=== PATIENT | male | born 1935 | race Caucasian/White ===

== ENCOUNTER 2021-02-12 06:34 | Observation (INO) ==
--- NOTE | 2021-01-09 15:15 | PAT Medication Instructions ---
Medication Instructions Date of Service January 09, 2021 Home Medications aspirin 81 mg tablet,delayed release 81 mg PO QAM atorvastatin 20 mg tablet 20 mg PO QPM finasteride 5 mg tablet 5 mg PO QPM meloxicam 15 mg tablet 15 mg PO QAM omega 9-klm-tli-fish oil 1,200 mg (144 mg-216 mg) capsule 1 cap PO QAM tamsulosin 0.4 mg capsule 0.4 mg PO QAM turmeric 400 mg capsule 1,000 mg PO QAM acetaminophen [Tylenol Extra Strength] 1,000 mg PO Q6H PRN ASK your surgeon for instructions meloxicam 15 mg tablet 15 mg PO QAM STOP taking 2 weeks before surgery (or as soon as possible if surgery is within 2 weeks) omega 0-zou-zrq-fish oil 1,200 mg (144 mg-216 mg) capsule 1 cap PO QAM turmeric 400 mg capsule 1,000 mg PO QAM Take morning of surgery With a small sip of water, OTHERWISE NOTHING TO EAT OR DRINK AFTER MIDNIGHT: aspirin 81 mg tablet,delayed release 81 mg PO QAM (continue as normal unless told otherwise by surgeon) tamsulosin 0.4 mg capsule 0.4 mg PO QAM acetaminophen [Tylenol Extra Strength] 1,000 mg PO Q6H PRN (okay to take up to 4 hours prior to surgery if needed) Take evening before surgery atorvastatin 20 mg tablet 20 mg PO QPM finasteride 5 mg tablet 5 mg PO QPM acetaminophen [Tylenol Extra Strength] 1,000 mg PO Q6H PRN (if needed) Other Notes If you have any questions please call us at [phone] or [phone] or [phone] or [phone]
--- NOTE | 2021-01-14 10:17 | Anesthesiology Consultation ---
Date of Service January 14, 2021 Assessment & Plan (1) Encounter for pre-operative examination: - COVID screening: Per assessment on 01/14: Travel screen- returned from travel to [place], [place] 01/04/21. Trip with extended family, stayed in rented condo. P atient vaccinated. Return from travel will be > 2 weeks prior to preop COVID testing. No known COVID-19 positive contacts or current COVID-19 related symptoms. Surgeon arranging preop COVID testing. Awaiting results. - Cardiology office visit (01/09/20): "Patient overall is doing well. Previous and recent test results and medical options were thoroughly reviewed. Risk factor modifications were discussed. Continue routine care and follow-up.. Bradycardia.. Asymptomatic." F/U 12/2021 per cardiology. Chart Review Chart Review: Acceptable Risk for Surgery and Patient seen in Pre Admission Testing Teaching & Discussion Pre-Anesthesia Teaching/Discussion Notes: Instructed NPO after midnight before surgery,except medications with 15 cc of water. Medication instructions provided according to the PAT guidelines. History Surgery Operation Date: 02/12/21 07:00 Proposed Procedures p Right Total Hip Arthroplasty - Too De La Cruz MD Height/Weight Height: 6 ft 4 in Weight: 93.6 kg Allergies Allergy/AdvReac Type Severity Reaction Status Date / Time No Known Allergies Allergy Verified 01/09/21 08:57 Medications Home Medications Medication Instructions Recorded Confirmed Last Taken aspirin 81 mg tablet,delayed 81 mg PO QAM 11/15/20 01/14/21 Unknown release atorvastatin 20 mg tablet 20 mg PO QPM 11/15/20 01/14/21 Unknown finasteride 5 mg tablet 5 mg PO QPM 11/15/20 01/14/21 Unknown meloxicam 15 mg tablet 15 mg PO QAM 11/15/20 01/14/21 Unknown omega 2-cno-bif-fish oil 1,200 mg 1 cap PO QAM 11/15/20 01/14/21 Unknown (144 mg-216 mg) capsule tamsulosin 0.4 mg capsule 0.4 mg PO QAM 11/15/20 01/14/21 Unknown turmeric 400 mg capsule 1,000 mg PO QAM 11/15/20 01/14/21 Unknown acetaminophen [Tylenol Extra 1,000 mg PO Q6H PRN 01/09/21 01/14/21 Unknown Strength] Past Medical History Medical History Arthritis of right hip CAD (coronary artery disease) GORAN x1 to dRCA (2016), follows with Dr. Ramos Enlarged prostate High cholesterol History of myocardial infarction NSTEMI (2016) > GORAN x1 to dRCA Exercise / Class Metabolic Activity II 4-5 Yardwork/Stairs/Walk up hill Past Family History Family History Other No known health problems Past Surgical History Surgical History H/O carpal tunnel repair R/L H/O hernia repair x2 H/O prostate biopsy History of cardiac cath stent x1 (2015)/[facility] History of colonoscopy Past Anesthesia History No Hx of Anesthesia Complications and No Family Hx of Anesthesia Complications History of PONV No Hx of PONV and No Hx of Motion Sickness Social History Smoking Status: Former smoker Do You Dip or Chew Tobacco: No (Quit ) Smoking End Date: Quit Hx Alcohol Use: Yes Alcohol type: beer and wine alcohol intake frequency: holidays/special occasions only Hx Substance Use: No Review of Systems No snoring. Patient denies chest pain, shortness of breath, dyspnea on exertion, fever, chills, cough, wheezing, palpitations. Physical Exam Vital Signs VITALS BP 100/61 > pt reports low-normal BP chronically P 52 > chronic bradycardia, asymptomatic TEMP 98.1 SP02 94%RA RESP 16 PHYSICAL Full cervical extension range of motion. Full TMJ range of motion. TMD 3.5 finger breaths Mallampati Score 3 Dentition: missing molars Lungs: clear throughout to auscultation Cardiac: regular rate and rhythm, distant heart sounds Spine: normal Carotid arteries: negative bruit Extremities: no edema Lab Results Anesthesia Preop Results Results Anesthesia Widget: WBC 5.84 K/uL (4.8-10.8) 01/14/21 Hgb 12.9 g/dL (14.0-18.0) L 01/14/21 Hct 39.4 % (42-52) L 01/14/21 Plt 207 K/uL (130-400) 01/14/21 Na 140 mmol/L (136-145) 01/14/21 K 4.5 mmol/L (3.5-5.1) 01/14/21 Cl 108 mmol/L (98-107) H 01/14/21 CO2 27 mmol/L (21-32) 01/14/21 BUN 20 mg/dl (7-18) H 01/14/21 Creat 0.88 mg/dl (0.6-1.4) 01/14/21 Glucose Level 95 mg/dl (70-99) 01/14/21 PT 10.6 Seconds (9.0-12.0) 01/14/21 PTT 27.3 Seconds (21.0-31.0) 01/14/21 INR 1.0 (0.9-1.1) 01/14/21 Blood Type A Positive 01/14/21 Antibody Screen NEGATIVE 01/14/21 Testing Electrocardiogram Date: 01/14/21 SB with first degree AVB at 53bpm. Otherwise normal ECG. Chest X-Ray Date: 01/14/21 Mild atelectasis or scarring at the left base. Echocardiogram Date: 12/20/19 LVEF 55 to 60%. Mild LAE. Mild ME. Mildly dilated ascending aorta. Estimated PASP is normal. Stress Test Date: 08/31/17 Type: exercise Stress ECG negative for ischemia. Fair exercise tolerance. METS 8.8. No exercise-induced chest pain. 97% MPHR. Cardiac Catheterization Date: 06/23/16 GORAN dumont to Renan
[~2021-02-12 06:34] MED LIST: ACETAMINOPHEN 500 MG TAB PO SCH; BUPIVACAINE 0.5 % 5 MG/1 ML PF 10ML VIAL ONE; FAMOTIDINE 20 MG TAB PO SCH; GABAPENTIN 300 MG CAP PO SCH; LR 500ML BOLUS, THEN 15ML/HR IV SCH; LR 60ML/HR IV SCH; METOCLOPRAMIDE HCL 10 MG TABLET PO SCH; TRANEXAMIC ACID 1,000 MG **IV Pre-op IV SCH; ceFAZolin 2000MG 2,000 MG/15 ML SYR IV SCH
--- NOTE | 2021-02-12 06:54 | History & Physical Bridge Note ---
Date of Service February 12, 2021 History & Physical Bridge Note I have examined the patient, reviewed the History & Physical and in the interval since the performance of the History & Physical I have noted the following changes of clinical significance: no changes noted
[2021-02-12] MEDS ORDERED: LIDOCAINE 2% 2 ML VIAL/AMP(20MG/ML) INFIL ONE (07:18)
[2021-02-12] MEDS ORDERED: PROPOFOL IV EMULSION 10 MG/ML 20 ML VIAL IV ONE (07:18)
[2021-02-12] MEDS ORDERED: fentaNYL citrate 100 MCG/2 ML VIAL ONE (07:19)
[2021-02-12] MEDS ORDERED: MIDAZOLAM HCL 1 MG/ML 2ML VIAL ONE (07:19)
[2021-02-12] MEDS ORDERED: EPINEPHrine INJ 1 MG/ML AMP ONE (07:20)
[2021-02-12] MEDS ORDERED: BUPIVACAINE 0.5 % 5 MG/1 ML MPF 30ML VIAL ONE (07:21)
[2021-02-12] MEDS ORDERED: MoRPHine SULFATE PF 1 MG/ML 10 ML AMP/VIAL ONE (07:24)
[2021-02-12] MEDS ORDERED: ePHEDrine sulfate 50 MG/ML AMP IV PRN (08:03)
[2021-02-12] MEDS ORDERED: ATROPINE SULFATE 0.1 MG/ML 10ML SYR IV PRN (08:03)
[2021-02-12] MEDS ORDERED: fentaNYL citrate 100 MCG/2 ML VIAL IV PRN (08:03)
[2021-02-12] MEDS ORDERED: ONDANSETRON INJ 2 MG/ML 2 ML VIAL IV PRN ×2 (08:03→15:33)
[2021-02-12] MEDS ORDERED: PHENYLEPHRINE HCL 10 MG/ML VIAL ONE (09:45)
[2021-02-12] MEDS ORDERED: ePHEDrine sulfate 50 MG/ML SYR ONE (09:45)
[2021-02-12] MEDS ORDERED: PHENYLEPHRINE 100MCG/ML 5ML SYR ONE (09:45)
--- NOTE | 2021-02-12 10:06 | Post Operative Brief Note ---
PG Immediate Post Op with CF Date of Surgery February 12, 2021 Pre & Post Diagnosis Operation Date: 02/12/21 08:50 Pre-Op Diagnosis: Right Hip Osteoarthritis Post-Op Diagnosis: Right Hip Osteoarthritis I identified the patient and participated in the time-out.: Yes Procedure Operation Date: 02/12/21 08:50 Actual Procedures p Right Total Hip Replacement(Right) - Too De La Cruz MD Surgeon Too De La Cruz MD Flight Engineer Manager YOSELIN Neff Estimated Blood Loss 200 Findings Consistent with Post-Op Diagnosis Fluids 1500 cc Specimens Specimen Description: A. Right Femoral Head Drains Thompson Catheter Anesthesia Type Spinal MAC Complications none
--- NOTE | 2021-02-12 10:23 | Operative Report ---
Post Operative Report Pre & Post Diagnosis Operation Date: 02/12/21 08:50 Pre-Op Diagnosis: Right Hip Osteoarthritis Post-Op Diagnosis: Right Hip Osteoarthritis I identified the patient and participated in the time-out.: Yes Procedure Operation Date: 02/12/21 08:50 Actual Procedures p Right Total Hip Replacement(Right) - Too De La Cruz MD Surgeon Too De La Cruz MD Dental Mechanic YOSELIN Neff Estimated Blood Loss 200 Findings Consistent with Post-Op Diagnosis Operative findings revealed advanced right hip DJD with extensive grade 4 luhs-uw-hbbv disease of the femoral head and acetabulum. Large hip joint effusion. He had flattening and erosive changes of the femoral head. Moderate- sized joint effusion. Some moderate synovitis. Fluids 1500 cc Specimens Right femoral head sent for pathology. Drains None Anesthesia Type Spinal MAC Complications none Disposition Accompanied Patient To Recovery: Yes Indications Patient is an 85 old very active gentleman has had a several year history of the right hip pain is gotten secondarily worse over the past 6 months. He exercises regularly but been less able to do this due to severe hip pain. X-ray showed advanced hip DJD. He failed conservative management elected proceed with surgical treatment. Description of Procedure Operative implants consisted of: 1. Biomet G7 size 58 mm acetabular shell. 2. Homer hole hand tire trimmer. 3. 6.5 cancellous acetabular screws 135 mm length by 30 mm length. 4. Highly cross-linked polyethylene liner with a 58 mm outer diameter, 40 mm inner diameter with a casillas placed inferior and posterior. 5. Storden Corail size 15 KLA femoral stem. 6. +8.5/40 mm ceramic articular ball. Patient was taken to the operating, identified, placed on the operating table supine position protectors were properly padded. IV antibiotics 5 by anesthesia team. A spinal anesthetic and been implemented holding area. Thompson catheter was placed in sterile fashion. The patient then placed in the left lateral decubitus position. An axillary roll was placed. A Stulberg hip positioner was used for positioning. The right hip and leg were then prepped and draped in usual sterile fashion. A posterior lateral approach of the right hip was then performed through a curvilinear incision centered over the greater trochanter. Sharp dissection was carried through subcutaneous tissue down to the IT band gluteal fascia the IT band gluteal fascia incised longitudinally in line with skin incision. The underlying greater bursa was excised. The piriformis and external rotators were tagged and taken off the posterior aspect of the femur. Great care was taken throughout the procedure protect the sciatic nerve at all times. Posterior capsulotomy was then performed leaving a large flap for later repair. Hip was internally rotated and dislocated. Femoral neck osteotomy cut was made with Final Cut 14 mm above the lesser trochanter. Femoral head was removed and sent for pathology. The femur was retracted anteriorly. Attention drawn the acetabulum. The acetabular labrum was excised. The pulmonary fat was excised. Sequential reaming the acetabular was then performed again with a size 47 and progressing up to 57. I did reamed a little bit with a 58 reamer and then placed a 58 mm cup. This is placed in about 40 lateral opening and 20 of anteversion. It was fixed with two 6.5 cancellous acetabular screws. Some fairly large anterior osteophytes were removed. Trial liner was placed. Attention drawn the femur. The proximal femur was entered with a cookie-cutter followed by canal finder. I then broached begin the size 8 and progressing up to a 15. Got excellent fit of 15. I then trialed the hip. The +5 articular ball seemed a bit lax. He had quite a bit of offset so I did place a +8.5 articular ball with a casillas placed inferior and posterior to maximize his stability. We also used a 40 mm head. The hip was fully stable in full extension and external rotation and flexion to 9 internal rotation to 50. I elect to place these implants. All trial implants were removed. An apex hole hand tire trimmer was placed but highly cross-linked polyethylene liner was placed with a casillas placed inferior and posterior. A a 15 KLA femoral stem was impacted in position. +8.5/40 mm ceramic articular ball was placed. Hip was located once again found to be stable. Attention drawn toward closing. Nupathe wounds irrigated scope soft pulsatile lavage solution. I did inject locally with 60 cc of half percent Marcaine with epinephrine. The posterior capsule and external rotators were then repaired through drill holes in the posterior trochanter with #2 Tycron suture. The IT band gluteal fascia then closed in 1 PDS suture running fashion subcutaneous tissue was then closed with 2-0 Dexon suture in a buried interrupted fashion the skin was closed with skin meena. Legs then cleaned dried a sterile dressing both Xeroform, 4 x 4's, sterile ABD pad and foam tape was applied. Patient then transferred to the recovery room in stable condition. Patient tolerated the procedure well and there were no complications. Iftikhar Neff, my physician library clerical assistant, was present for the entire procedure. His assistance was essential and required for appropriate patient positioning, prepping and draping, surgical exposure, performing the technical details of the operation, placement the implants, closure of the wound, and placement of the sterile bandage. I attest to the content of the Intraoperative Record and any orders documented therein. Any exceptions are noted below.
--- NOTE | 2021-02-12 10:36 | Anesthesiology Progress Note ---
Date of Service February 12, 2021 Anesthesia Post Procedure Vital Signs Vital Signs: Temp Pulse Pulse Resp BP Pulse Ox 02/12/21 10:25 97.0 F L 77 16 92/63 L 97 02/12/21 10:15 96 H 14 93/55 L 93 02/12/21 10:08 97.3 F L 88 14 111/60 98 02/12/21 07:38 97.9 F 62 18 107/90 97 02/12/21 07:01 98.2 F 66 20 154/76 H 98 Transfer of Care Handoff Completed per policy Notes Mental Status: alert / awake / arousable and participated in evaluation Patient Amnestic to Procedure: Yes Nausea / Vomiting: adequately controlled Pain: adequately controlled Airway Patency, RR, SpO2: stable & adequate BP & HR: stable & adequate Hydration State: stable & adequate Neuraxial Anesthesia: was administered and sensory block is resolving Anesthetic Complications: no major complications apparent and Pt Satisfied with anesthetic care
--- NOTE | 2021-02-12 13:16 | XRay Report ---
XR hip 1V RT w pelvis CLINICAL HISTORY: Postoperative evaluation. COMPARISON: Right hip radiographs January 14, 2021. FINDINGS: Alignment of the total right hip arthroplasty is anatomic. No periprosthetic fracture. The re is no unexpected radiopaque foreign body. There are skin meena. Left hip osteoarthritis is noted . IMPRESSION: Expected findings following total right hip arthroplasty. ACT 112: Negative or not required by law. Electronically signed by: Napoleon Guillen M.D. 02/12/2021 1:15 PM
[2021-02-12] MEDS ORDERED: METOCLOPRAMIDE HCL INJ 5 MG/ML 2 ML VIAL IV PRN (15:33)
[2021-02-12] MEDS ORDERED: traMADol HCL 50 MG TABLET PO PRN (15:33)
[2021-02-12] MEDS ORDERED: MAGNESIUM HYDROXIDE SUSP 30 ML UDC PO PRN (15:33)
[2021-02-12] MEDS ORDERED: bisacodyL 10 MG SUPP PR PRN (15:33)
[2021-02-12] MEDS ORDERED: HYDROmorphone INJ 0.5 MG/0.5 ML SYR IV PRN (15:33)
[2021-02-12] MEDS ORDERED: ALUMINUM/MAGNESIUM SUSP 30 ML UDC PO PRN (15:33)
[2021-02-12] MEDS ORDERED: NALOXONE HCL 0.4 MG/1 ML VIAL/CARP IV PRN (15:33)
[2021-02-12] MEDS ORDERED: TRANEXAMIC ACID / 0.7% NACL 1,000 MG/100 ML BAG IV SCH (16:15)
[2021-02-12] MEDS: SODIUM CHLORIDE 0.9% 1000ML 1,000 ML IV SCH (16:19)
[2021-02-12] MEDS: KETOROLAC TROMETHAMINE 15 MG/ML VIAL IV SCH ×2 (16:20→21:24)
[2021-02-12] MEDS: ACETAMINOPHEN 500 MG TAB PO SCH ×2 (16:20→21:23)
[2021-02-12] MEDS: ASCORBIC ACID 500 MG TAB PO SCH (17:39)
[2021-02-12] MEDS: ceFAZolin 2000MG 2,000 MG/15 ML SYR IV SCH (18:39)
[2021-02-12] MEDS ORDERED: FINASTERIDE 5 MG TAB PO SCH (21:00)
[2021-02-12] MEDS ORDERED: ATORVASTATIN 20 MG TAB PO SCH (21:00)
[2021-02-12] MEDS ORDERED: SENNA 8.6 MG TAB PO SCH (21:00)
[2021-02-12] MEDS: ASPIRIN 81 MG ECTAB PO SCH (21:22)
[2021-02-12] MEDS: DOCUSATE SODIUM 100 MG CAP PO SCH (21:23)
[2021-02-13] MEDS: SODIUM CHLORIDE 0.9% 1000ML 1,000 ML IV SCH (01:48)
[2021-02-13] MEDS: ceFAZolin 2000MG 2,000 MG/15 ML SYR IV SCH (01:48)
[2021-02-13] MEDS: KETOROLAC TROMETHAMINE 15 MG/ML VIAL IV SCH ×2 (03:55→08:37)
[2021-02-13 06:22] LABS: Eosinophils # (auto) 0.01 K/uL (0-0.5); Eosinophils % (auto) 0.1 %; Hematocrit (blood only) 29.7 % (42-52); Immature Granulocytes # (auto) 0.02 K/uL (0.00-0.02); Immature Granulocytes % (auto) 0.2 %; Lymphocytes # (auto) 0.53 K/uL (1.2-3.4); Lymphocytes % (auto) 5.1 %; Mean Corpuscular Hemoglobin 28.4 pg (25-34); Mean Corpuscular Hgb Conc 33.7 g/dL (32-36); Mean Corpuscular Volume 84.4 fL (80-100); Mean Platelet Volume 8.3 fL (7.4-10.4); Monocytes % (auto) 9.6 %; Neutrophils # (auto) 8.88 K/uL (1.4-6.5); Platelet Count 161 K/uL (130-400); RDW Coefficient of Variation 14.3 % (11.5-14.5); Red Blood Count 3.52 M/uL (4.7-6.1); White Blood Count 10.44 K/uL (4.8-10.8)
[2021-02-13] MEDS: ACETAMINOPHEN 500 MG TAB PO SCH ×2 (06:33→14:34)
[2021-02-13 06:52] LABS: Calcium 7.8 mg/dl (8.5-10.1); Creatinine Clr Calc Pharmacy 90.4 ml/min; Est GFR (African American) 97.8 ml/min; Est GFR (Non-African American) 84.4 ml/min; Potassium 4.2 mmol/L (3.5-5.1)
[2021-02-13] MEDS ORDERED: dexAMETHasone 10 MG in SYRINGE 0 ML IV SCH (08:00)
[2021-02-13] MEDS: ASPIRIN 81 MG ECTAB PO SCH (08:35)
[2021-02-13] MEDS: ASCORBIC ACID 500 MG TAB PO SCH (08:35)
[2021-02-13] MEDS: DOCUSATE SODIUM 100 MG CAP PO SCH (08:36)
[2021-02-13] MEDS ORDERED: MULTIVITAMIN TAB PO SCH (09:00)
[2021-02-13] MEDS ORDERED: TAMSULOSIN HCL 0.4 MG CAP PO SCH (09:00)
[2021-02-13] MEDS ORDERED: OMEGA-3 (PURIFIED FISH OIL) 1 GM CAP PO SCH (09:00)
--- NOTE | 2021-02-13 15:21 | Progress Notes ---
DATE OF SERVICE: 02/13/2021 SUBJECTIVE: An 85-year-old gentleman postoperative day 1 from right hip replacement. He is doing we ll. He denies any pain. Therapy went well. No chest pain or shortness of breath. Not feeling ligh theaded or dizzy. OBJECTIVE: VITAL SIGNS: Temperature 36.4. Vital signs are stable. PHYSICAL EXAMINATION: GENERAL: Shows a pleasant, elderly male. He is walking around his room with a walker quite well. EXTREMITIES: His examination of the hip reveals dressing to be clean, dry and intact. Leg lengths are equal. Thigh is soft and supple. Hip is located. He is neurologically intact. LABORATORY DATA: Hemoglobin 10.0. Hematocrit 29.7. Electrolytes are stable. ASSESSMENT: An 85-year-old gentleman postoperative day 1 from right hip replacement, doing remarkabl y well. Pain is controlled. Hip is located. He is wanting to go home. PLAN: 1. DVT prophylaxis includes thigh-high TEDs, SCDs, and aspirin twice a day. 2. PT, OT, weightbear as tolerated. Right total hip protocol. 3. Pain control, doing well with current pain regimen. 4. Disposition: Plan to discharge him home with some home health today. Job ID: [id number]
--- NOTE | 2021-02-23 10:21 | Discharge Summary ---
Date of Service February 23, 2021 Discharge Data Procedures Performed Operation Date: 02/12/21 08:50 Actual Procedures p Right Total Hip Replacement(Right) - Too De La Cruz MD Hospital Course (1) Status post total hip replacement, right: This is a 86 year old patient admitted on 02/12/21 and underwent total hip arthroplasty. He tolerated the procedure well and there were no complications. Transferred to the PACU post op and later to the orthopedic floor for further care. He was given ancef for antibiotic prophylaxis. He was also given RICHELLE stockings, SCDs, and aspirin for DVT prophylaxis. Hemoglobin, hematocrit, and vital signs were monitored during his hospital stay and remained stable. Did not require any blood transfusions. There were no complications during his hospital stay. By post op day #1 the patient was tolerating a regular diet, pain was reasonably controlled with oral pain medicine, and he was participating in physical therapy. On post op day #1 the patient was discharged home and set up with home health care. He was given printed discharge instructions including prescriptions for extra strength tylenol, aspirin, and tramadol. Continue physical therapy, weight bearing as tolerated. Continue hip precautions. Continue RICHELLE stockings. Follow up approximately 2 weeks post op or sooner if there are problems or concerns. Coding Level of Care Code None Diagnoses Status post total hip replacement, right Z96.641
== END 2021-02-13 16:15 | disposition home health service (06) ==
LOC: PACUINP 06:34 → ASU 06:34 → 3E 15:49
DX: E78.00 Pure hypercholesterolemia, unspecified; I25.10 Atherosclerotic heart disease of native coronary artery without angina pectoris; M16.11 Unilateral primary osteoarthritis, right hip; Z79.82 Long term (current) use of aspirin; N40.0 Benign prostatic hyperplasia without lower urinary tract symptoms; Z87.891 Personal history of nicotine dependence; Z79.899 Other long term (current) drug therapy